=== PATIENT | female | born 1935 | race Two or more races ===

== ENCOUNTER 2024-02-29 17:18 | Emergency (ER) | payer OTHER ==
[~2024-02-29] VITALS: Ht 152.4 cm; Wt 78.0 kg
[2024-02-29 17:44] LABS: BASOPHILS % (AUTO) 0.2 % (0.0-2.0); EOSINOPHILS # (AUTO) 0.1 K/uL (0.0-0.7); EOSINOPHILS % (AUTO) 0.8 % (0.0-6.0); HEMATOCRIT 30 % (33-45); HEMOGLOBIN 9.9 g/dL (11.5-14.8); LYMPHOCYTES # (AUTO) 1.1 K/uL (0.8-4.8); LYMPHOCYTES % (AUTO) 10.7 % (20.0-44.0); MEAN CORPUSCULAR HEMOGLOBIN 32 PG (26.0-33.0); MEAN CORPUSCULAR HGB CONC 33 g/dl (31.0-36.0); MEAN CORPUSCULAR VOLUME 94 fL (82-100); MONOCYTES # (AUTO) 0.6 K/uL (0.1-1.30); MONOCYTES % (AUTO) 5.7 % (2.0-12.0); NEUTROPHILS # (AUTO) 8.7 K/uL (1.8-8.9); NEUTROPHILS % (AUTO) 82.6 % (43.0-81.0); PLATELET COUNT (AUTO) 278 K/uL (150-450); RED BLOOD CELL COUNT(AUTO) 3.12 MIL/uL (4.0-5.2); RED CELL DISTRIBUTION WIDTH 13.9 % (11.5-15.0); WHITE BLOOD COUNT (AUTO) 10.5 K/uL (4.3-11.0)
[2024-02-29 17:56] LABS: VBG BASE EXCESS -3.2 mmol/L (-2.0-3.0); VBG COHb 0.3 % (0.5-1.5); VBG HCO3 21.8 mmol/L (22.0-29.0); VBG MetHb 0.2 % (0.5-1.5); VBG O2Hb 65.5 % (0-79); VBG OXYGEN SATURATION 65.8 % (60.0-85.0); VBG PH 7.366 (7.320-7.430); VBG PO2 33.4 mmHg (23.0-48.0); VBG TOTAL HEMOGLOBIN 10.4 G/dL (12.0-16.0)
[2024-02-29 17:56] LABS: CALCIUM, SERUM 8.9 mg/dL (8.5-10.1); CARBON DIOXIDE 25 mmol/L (21-32); CHLORIDE 94 mmol/L (98-107); CREATININE 2.5 mg/dL (0.6-1.3); POTASSIUM 5.4 mmol/L (3.5-5.1); SODIUM SERUM 126 mmol/L (136-145); UREA NITROGEN, BLOOD 34 mg/dL (7-18)
[2024-02-29 18:01] LABS: GLUCOSE 413 mg/dL (74-106)
[2024-02-29] MEDS: IV NS 0.9% 1,000 ML BAG IV ONE (18:12)
[2024-02-29] MEDS: INSULIN REGULAR, HUMAN 100 UNIT/ML 10 ML VIAL SQ ONE (18:39)
[2024-02-29 20:15] VITALS: BP 146/66; TEMP 98; O2SAT 98
== END 2024-02-29 20:15 | disposition home or self-care (01) ==
LOC: ER 17:23
DX: R73.9 Hyperglycemia, unspecified (principal)
CPT/HCPCS: 99285; 96360; 82803; 85025; 80048; 82010; 36415; 82962; 96372; J1815; J7030